=== PATIENT | male | born 2005 | race Hispanic/Latino ===

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

== ENCOUNTER 2023-06-28 12:50 | Emergency (ER) | payer OTHER ==
[2023-06-28] MEDS ORDERED: Acetaminophen 500 MG TAB ONE (14:49)
== END 2023-06-28 15:18 | disposition home or self-care (01) ==
LOC: ERS 12:50
DX: S66.911A Strain of unspecified muscle, fascia and tendon at wrist and hand level, right hand, initial encounter (principal); W22.8XXA Striking against or struck by other objects, initial encounter